=== PATIENT | male | born 1995 | race Caucasian/White ===

== ENCOUNTER 2020-11-07 01:58 | Emergency (ER) | payer OTHER ==
[~2020-11-07 01:58] MED LIST: ACULAR LS20 DROP/ML EYEBOTH; BACTRIM DS TAB1 EAC1 PO; BACTRIM DS TAB1 EACH PO; KEFLEX250 MG PO; NORCO 5-325 TA1 EACH PO; ULTRAM50 MG PO
[2020-11-07 04:13] LABS: BILIRUBIN NEGATIVE (NEGATIVE); BLOOD NEGATIVE Ery/uL (NEGATIVE); CLARITY CLEAR (CLEAR); COLOR YELLOW (YELLOW); GLUCOSE (U) NORMAL (NORMAL); LEUKOCYTES NEGATIVE Leu/uL (NEGATIVE); NITRITE NEGATIVE (NEGATIVE); PROTEIN NEGATIVE (NEGATIVE); UROBILINOGEN 0.2 mg/dL (0.2-1.0); pH 6.5 (5.0-9.0)
[2020-11-07 04:14] LABS: BASOPHIL 0.5 % (0-2); EOSINOPHIL 0.5 % (0-5); HCT 45.1 % (42.0-52.0); HGB 15.1 g/dl (13.2-18.0); LYMPHOCYTE 17.5 % (15-48); MCH 30.4 pg (25.0-31.0); MCHC 33.5 g/dL (32.0-36.0); MCV 90.9 fL (78.0-100.0); MONOCYTE 2.2 % (0-12); MPV 9.6 fL (6.0-9.5); NRBC 0; PLT 259 K/uL (150-400); RBC 4.96 M/uL (4.70-6.00); RDW 12.9 % (11.5-14.0); WBC 8.7 K/uL (4.0-10.5)
[2020-11-07 04:36] LABS: ALBUMIN 4.1 g/dL (3.4-5.0); BILIRUBIN - TOTAL 0.3 mg/dL (0.2-1.0); BUN/CREAT RATIO (CALC) 9.3 RATIO; CREATININE 0.86 mg/dL (0.67-1.17); GLOBULIN (CALCULATION) 3.1 g/dL; POTASSIUM 3.5 mmol/L (3.5-5.1); TOTAL PROTEIN 7.2 g/dL (6.4-8.2)
[2020-11-07] MEDS ORDERED: IBUPROFEN800 MG PO ×2 (06:08→06:09)
[2020-11-07] MEDS ORDERED: VIBRAMYCIN100 MG PO ×2 (06:08→06:09)
[2020-11-09 21:08] LABS: CHLAMYDIA TRACHOMATIS, NAA Negative (Negative); NEISSERIA GONORRHOEAE, NAA Negative (Negative)
== END 2020-11-07 06:30 | disposition home or self-care (01) ==
LOC: FER 01:58
PROVIDERS: Emergency Medicine Emergency Medical Services
DX: N45.1 Epididymitis (principal); F17.210 Nicotine dependence, cigarettes, uncomplicated; F20.9 Schizophrenia, unspecified
CPT/HCPCS: 36415; 76870; 80053; 81003; 85025; 87491; 87591; 96372; J0696; J1170; J1885; J2405; J7030

== ENCOUNTER 2021-08-18 09:39 | Emergency (ER) | payer OTHER ==
[~2021-08-18 09:39] MED LIST changes: +IBUPROFEN800 MG PO; +VIBRAMYCIN100 MG PO
[2021-08-18 10:23] LABS: BASOPHIL 0.8 % (0-2); HCT 42.1 % (42.0-52.0); HGB 14.8 g/dl (13.2-18.0); LYMPHOCYTE 26.9 % (15-48); MCH 31.3 pg (25.0-31.0); MCHC 35.2 g/dL (32.0-36.0); MONOCYTE 8.4 % (0-12); MPV 9.7 fL (6.0-9.5); NEUTROPHIL 59.7 % (41-80); NRBC 0; PLT 224 K/uL (150-400); RBC 4.73 M/uL (4.70-6.00); WBC 6.2 K/uL (4.0-10.5)
[2021-08-18 10:29] LABS: BILIRUBIN - TOTAL 0.4 mg/dL (0.2-1.0); BUN/CREAT RATIO (CALC) 19.6 RATIO; CREATININE 0.97 mg/dL (0.67-1.17); GLOBULIN (CALCULATION) 2.8 g/dL; TOTAL PROTEIN 6.8 g/dL (6.4-8.2)
[2021-08-18 12:08] LABS: BILIRUBIN NEGATIVE (NEGATIVE); BLOOD NEGATIVE Ery/uL (NEGATIVE); CLARITY HAZY (CLEAR); COLOR YELLOW (YELLOW); GLUCOSE (U) NORMAL (NORMAL); LEUKOCYTES NEGATIVE Leu/uL (NEGATIVE); NITRITE NEGATIVE (NEGATIVE); PROTEIN NEGATIVE (NEGATIVE); SPECIFIC GRAVITY 1.015 (1.001-1.030); UROBILINOGEN 0.2 mg/dL (0.2-1.0); pH 7.5 (5.0-9.0)
[2021-08-18] MEDS ORDERED: NAPROXEN500 MG PO (12:56)
[2021-08-18] MEDS ORDERED: VIBRAMYCIN100 MG PO (12:56)
== END 2021-08-18 13:16 | disposition home or self-care (01) ==
LOC: FER 09:39
PROVIDERS: Emergency Medicine
DX: N50.811 Right testicular pain (principal); Z28.310 Unvaccinated for COVID-19
CPT/HCPCS: 36415; 80053; 81003; 83690; 85025; J2405; J7030